=== PATIENT | male | born 1965 | race Caucasian/White ===

== ENCOUNTER → 2020-03-05 11:35 | Outpatient (BNVA) | payer BC, SELFPAY | PROVIDERS: Family Provider Electrodiagnostic Medicine; PCP Electrodiagnostic Medicine; Visit Provider Nurse Practitioner | DX: J02.9 Acute pharyngitis, unspecified (principal) | CPT/HCPCS: 87071; 87880 ==

== ENCOUNTER 2020-06-04 11:08 | Observation (INO) | payer BC, SELFPAY ==
[2020-06-04] VITALS (12 sets, daily range): BP systolic 106–156; BP diastolic 65–93; PULSE 55–90; RESP 12–22; TEMP 36.7; O2SAT 90–98; BMI 33.0
--- NOTE | 2020-06-04 11:27 | ECG_ITS ---
[facility] Test Date: 2020-06-04 Pat Name: Brandin Thomas Department: Room: Gender: Male Circulation Representative: CLARE : 1965 Requested By: Jovanny North Order Number: [id number] Reading MD: MARTA PIERCE Measurements Intervals [place] Rate: 115 P: IN: QRS: 16 QRSD: 102 T: 43 QT: 366 QTc: 507 Interpretive Statements ATRIAL FIBRILLATION WITH RAPID VENTRICULAR RESPONSE MODERATE ST DEPRESSION [0.05+ mV ST DEPRESSION] No previous ECG available for comparison Electronically Signed On 06-04-2020 21:34:21 HEALTH SAFETY INSTRUCTOR by MARTA PIERCE [email or web address] [email or web address] hospitalThe Good Mortgage Companyohio state east hospital.[employer]/store/OV/[id number]
--- NOTE | 2020-06-04 11:27 | XRR_ITS ---
PROCEDURE INFORMATION: Exam: XR Chest, 1 View Exam date and time: 06/04/2020 12:11 PM Age: 55 years old Clinical indication: Chest pain; Additional info: Arrythmia TECHNIQUE: Imaging protocol: XR of the chest Views: 1 view. COMPARISON: No relevant prior studies available. FINDINGS: Lungs: Unremarkable. No consolidation. Pleural spaces: Unremarkable. No pleural effusion. No pneumothorax. Heart/Mediastinum: Unremarkable. No cardiomegaly. Bones/joints: Unremarkable. XR/XR chest 1V portable [id number] IMPRESSION: No acute findings.
--- NOTE | 2020-06-04 11:35 | W.ED.ARRPALP ---
HPI - Arrhythmia/Palpitations General: Chief Complaint: Arrhythmia/Palpitations Stated Complaint: Heart sounded off/Urgent care referral Time Seen by Provider: 06/04/20 11:27 History of Present Illness: HPI narrative: 55-year-old male comes in complaining of palpitations and rapid heart rate. Started 2 days ago. He does have a history of hypertension he takes amlodipine and metoprolol. His rate at the bedside was as high as the 140s and 150s just when he sat up. He is not really had any chest pain. He is not on any anticoagulants. He states he has not been told he is in atrial fibrillation in the past he has no history of coronary artery disease that he is aware of. MD complaint: rapid heart beat, heart racing , palpitations and irregular heart beat Onset (ago): day(s) (2) Duration: constant Severity: mild Context: occurred during rest Associated symptoms: Deny anxiety, cough, diaphoresis, muscle cramps, nausea, paresthesias, pre-syncope, sense of impending doom, short of breath, syncope or vomiting Review of Systems Const: Denies: diaphoresis ENMT: Denies: throat pain, ear or mastoid pain, nasal discharge or nasal congestion Card: Denies: syncope or pre-syncope Resp: Denies: dyspnea, productive cough or non-productive cough GI: Denies: nausea or vomiting : Denies: flank pain, dysuria, urinary frequency or urinary urgency Musc: Denies: muscle cramps Skin/Breast: Denies: rash or pruritus Psych: Denies: anxiety PFSH ED PFSH: Social History Smoking and tobacco status: never smoked Physical Exam Const: COMMON NORMALS: no acute distress GENERAL APPEARANCE: cooperative and comfortable ORIENTATION/CONSCIOUSNESS: Yes awake, Yes oriented to person, Yes oriented to place and Yes oriented to time HENMT: COMMON NORMALS: normocephalic, atraumatic and hearing grossly normal bilaterally HEAD & SCALP: normocephalic and atraumatic Neck/C-Spine: COMMON NORMALS: no JVD Resp: COMMON NORMALS: normal respiratory effort, No retractions, No use of accessory muscles and clear to auscultation bilaterally AUSCULTATION: clear to auscultation bilaterally Cardio: COMMON NORMALS: no JVD and No murmurs present (Cardio) RATE: tachycardic RHYTHM: abnormal rhythm irregularly irregular GI: COMMON NORMALS: Soft to palpation and No hepatosplenomegaly present AUSCULTATION: Yes normoactive bowel sounds PALPATION: Yes Soft to palpation, No Tenderness to palpation present (GI), No Guarding due to palpation present (GI) and Yes No hepatosplenomegaly present Extremity: COMMON NORMALS: normal to inspection, capillary refill normal, no clubbing, cyanosis or edema, no calf tenderness and no pedal edema Neuro: SENSORIUM/ORIENTATION: Yes oriented to person, Yes oriented to place and Yes oriented to time Skin: COMMON NORMALS: no rashes or lesions noted GENERAL SKIN EXAM: no rashes or lesions noted Course Vital Signs: Vital signs: Vital Signs Temperature 98.0 F 06/04/20 11:19 Pulse Rate 77 06/04/20 13:19 Respiratory Rate 16 06/04/20 13:19 Blood Pressure 128/65 06/04/20 13:19 Pulse Oximetry 98 06/04/20 13:19 MDM - Arrhythmia/Palpitations MDM Narrative: Medical decision making narrative: Gustavo in A. fib. When he stays in bed resting his heart rate stays 80s and 90s but even just repositioning helps and better he will shoot up to 120s when he ambulates on the monitor goes to 140s and 150s. He is already on metoprolol. Would place him on observation for further evaluation rate control discussed with hospitalist orders are written. Lab Data: Labs: Lab Results 06/04/20 06/04/20 06/04/20 Range/Units 11:35 11:35 11:35 WBC 8.1 (4.0-10.0) 10^3/ uL RBC 5.43 H (4.1-5.3) 10^6/u L Hgb 16.4 (11.7-16.6) g/dL Hct 48.6 (42.0-52.0) % MCV 89.5 (80-94) fL MCH 30.2 (28.0-34.0) pg MCHC 33.7 (30.0-36.0) g/dL RDW 12.1 (12.1-15.1) % Plt Count 266 (130-400) 10^3/c mm MPV 10.4 (7.4-10.4) fL Neut % (Auto) 55.0 % Lymph % (Auto) 30.9 % [place] % (Auto) 8.9 % Eos % (Auto) 4.1 % Baso % (Auto) 0.9 % Neut # (Auto) 4.46 (1.8-7.7) 10^3/u L Lymph # (Auto) 2.5 (0.8-4.8) 10^3/u L [place] # (Auto) 0.7 (0.2-0.9) 10^3/u L Eos # (Auto) 0.3 (0.0-0.8) 10^3/u L Baso # (Auto) 0.1 (0.0-0.1) 10^3/u L Nucleated RBC % (a uto) 0 % Nucleated RBCs # 0.0 /100WBC Sodium 134 L (136-145) mmol/L Potassium 3.5 (3.5-5.1) mmol/L Chloride 95 L (98-107) mmol/L Carbon Dioxide 24 (22-29) mmol/L Anion Gap 18.5 (5-19) BUN 18 (6-20) mg/dL Creatinine 0.9 (0.7-1.2) mg/dL GFR Calculation 87.3 L (90-130) mL/min Glucose 126 H (65-115) mg/dL Calculated Osmolal ity 281 L (285-295) mOsm/k g Calcium 9.6 (8.5-10.5) mg/dL Total Bilirubin 0.9 (0.15-1.2) mg/dL AST 101 H (0-40) U/L ALT 128 H (0-41) U/L Alkaline Phosphata se 70 (40-130) IU/L Troponin T Baselin e 14 (0-15) ng/L Total Protein 7.9 (6.6-8.7) g/dL Albumin 4.6 (3.5-5.2) g/dL Globulin 3.3 (1.3-4.6) g/dL TSH 1.45 (0.27-4.20) uIU/ mL Discharge Plan Discharge Patient Disposition: Placed in Observation Clinical Impression: Atrial fibrillation, Benign essential HTN Coding Level of Care Code ED Solids Control Technician for Chg Fwd Exam Comprehensive
[2020-06-04 11:47] LABS: Basophils # 0.1 10^3/uL (0.0-0.1); Basophils % 0.9 %; Eosinophils # 0.3 10^3/uL (0.0-0.8); Eosinophils % 4.1 %; Hematocrit 48.6 % (42.0-52.0); Hemoglobin 16.4 g/dL (11.7-16.6); Lymphocytes # 2.5 10^3/uL (0.8-4.8); Lymphocytes % 30.9 %; Mean Corpuscular HGB Conc 33.7 g/dL (30.0-36.0); Mean Corpuscular Hemoglobin 30.2 pg (28.0-34.0); Mean Corpuscular Volume 89.5 fL (80-94); Mean Platelet Volume 10.4 fL (7.4-10.4); Monocytes # 0.7 10^3/uL (0.2-0.9); Monocytes % 8.9 %; Neutrophils # 4.46 10^3/uL (1.8-7.7); Nucleated Red Blood Cells % 0 %; Platelet Count 266 10^3/cmm (130-400); Red Blood Count 5.43 10^6/uL (4.1-5.3); Red Cell Distribution Width 12.1 % (12.1-15.1); White Blood Count 8.1 10^3/uL (4.0-10.0)
[2020-06-04 12:14] LABS: Troponin(5th) Baseline 14 ng/L (0-15)
[2020-06-04 12:24] LABS: Alanine Aminotransferase 128 U/L (0-41); Albumin Level 4.6 g/dL (3.5-5.2); Alkaline Phosphatase 70 IU/L (40-130); Anion Gap 18.5 (5-19); Aspartate Amino Transferase 101 U/L (0-40); Blood Urea Nitrogen 18 mg/dL (6-20); Calcium 9.6 mg/dL (8.5-10.5); Carbon Dioxide 24 mmol/L (22-29); Chloride 95 mmol/L (98-107); Globulin 3.3 g/dL (1.3-4.6); Glomerular Filtration Rate 87.3 mL/min (90-130); Glucose 126 mg/dL (65-115); Osmolality Calculated 281 mOsm/kg (285-295); Potassium 3.5 mmol/L (3.5-5.1); Sodium 134 mmol/L (136-145); Thyroid Stimulating Hormone 1.45 uIU/mL (0.27-4.20); Total Bilirubin 0.9 mg/dL (0.15-1.2); Total Protein 7.9 g/dL (6.6-8.7)
--- NOTE | 2020-06-04 13:27 | ECG_ITS ---
[facility] Test Date: 2020-06-04 Pat Name: Brandin Thomas Department: Room: Gender: Male Medicaid Nurse: : 1965 Requested By: Jovanny North Order Number: [id number] Reading MD: MARTA PIERCE Measurements Intervals [place] Rate: 91 P: MA: QRS: 23 QRSD: 96 T: 38 QT: 380 QTc: 469 Interpretive Statements ATRIAL FIBRILLATION ABNORMAL RHYTHM ECG Compared to ECG 06/04/2020 11:17:19 ST (T wave) deviation no longer present Electronically Signed On 06-04-2020 21:34:34 BALANCE STAFF STAKER by MARTA PIERCE [email or web address]/[id number]
--- NOTE | 2020-06-04 13:57 | PC.NURSE ---
Ambulated with portable monitor, HR elevated from 120's-150's, denies symptoms at time of ambulation.
[2020-06-04] MEDS: metoprolol tartrate 25 mg Tablet PO (14:41)
[2020-06-04] MEDS: metoprolol tartrate 1 mg/1 mL SDV 5 mL 2.5 MG IV (14:41)
[2020-06-04 14:57] LABS: Free T4 Free Thyroxine 1.39 ng/dL (0.82-1.77)
--- NOTE | 2020-06-04 16:03 | PM.HP ---
Providers/Chief Complaint Admitting Physician: Blake Colvin Primary Care Provider: Zaire Childs DO Chief Complaint: Heart sounded off/Urgent care referral History of Present Illness Very pleasant 55-year-old gentleman with longstanding history of hypertension, since at least age 28 at which point he required starting 2 medications, with BPH, recently having gone through COVID-19 infection with minimal if any symptoms, not requiring supplemental oxygen, came in due to nursing significant palpitations while walking starting on . He was referred after assessment in outpatient clinic and in ER noted to have heart rates up into 130s initially when sitting up, atrial fibrillation, then with walking 140s-150s. Atrial fibrillation noted on EKG. He denies history of atrial fibrillation in the past. Otherwise he states that his heart rate staying in the 50s-60s. He denies having any chest pain or pressure. He has not been short of breath. He reports that his Fitbit has been warning him of intermittently fast heart rates recently. He does state that on he felt he had too much sodium having gone to the local [place] place twice, and so since then has had no sodium in his diet. He otherwise states has been at baseline state of health. Denies any fevers or chills, shortness of breath, does state has had chronic cough for close to about a year. No phlegm production. His saturation in ER is in the mid to high 90s on room air. Chest x-ray is unremarkable. His baseline troponin is normal at 14, with 2 hours troponin of 12.7. Glucose is 126, without history of diabetes. Sodium is 134. Potassium 3.5. Creatinine 0.9. Incidentally noted AST and ALT elevation, 101, 128 respectively. Normal T bili, alkaline phosphatase. TSH Normal at 1.45. Free T4 1.39. Review of Systems Const: Denies: fever(s), chills, body aches or malaise Eyes: Denies: change in vision or eye redness ENMT: Denies: throat pain, oral sores or ear or mastoid pain Card: Reports: irregular heart rhythm; Denies: chest pain, edema, pre-syncope or dyspnea on exertion Resp: Denies: dyspnea, productive cough, change in phlegm color or hemoptysis GI: Denies: abdominal pain, nausea, vomiting, diarrhea, constipation, hematochezia or melena : Denies: flank pain, difficulty urinating, urinary frequency or hematuria Musc: Denies: back pain, joint swelling or joint redness Skin/Breast: Denies: rash, sores or new lesions Neuro: Denies: headache(s), numbness in extremities, weakness in extremities, dizziness, confusion or seizure-like activity Endo: Denies: polyuria or polydipsia Juan/Lymph: Denies: easy bleeding or purpura All/Imm: Denies: urticaria, throat swelling or tongue swelling Medications/Allergies Home Medications Medication Instructions Recorded Confirmed Last Taken Type amlodipine 10 mg tablet 10 mg PO DAILY@0600 03/05/20 06/04/20 06/04/20 History hydrochlorothiazide 25 mg tablet 25 mg PO DAILY@0600 03/05/20 06/04/20 06/04/20 History metoprolol tartrate 50 mg tablet 50 mg PO BID@0600,1800 03/05/20 06/04/20 06/04/20 History aspirin [Aspir-81] 81 mg PO DAILY@0600 06/04/20 06/04/20 06/03/20 History fluticasone propionate [Flonase] 50 mcg INTRANASAL BID PRN 06/04/20 06/04/20 Unknown History tamsulosin 0.4 mg capsule 0.4 mg PO DAILY@0600 06/04/20 06/04/20 06/04/20 History Allergies Allergy/AdvReac Type Severity Reaction Status Date / Time Penicillins Allergy Unknown Verified 06/04/20 10:39 PFSH Acute PFSH: Medical History BPH (benign prostatic hyperplasia) HTN (hypertension) Surgical History No significant past surgical history Family History Father CAD (coronary artery disease) Mother Pacemaker Social History Smoking and tobacco status: never smoked Alcohol intake: never Substance/Drug Use: never Lives independently: Yes Marital status: Current occupational status: employed [employer] Last Vital Signs Temp 98.0 F 06/04/20 14:44 Pulse 90 06/04/20 15:41 Resp 20 H 06/04/20 15:41 BP 106/80 06/04/20 15:41 Pulse Ox 96 06/04/20 15:41 Weight last 48 hrs Weight 113.398 kg Physical Exam Const: COMMON NORMALS: no acute distress and patient oriented x3 NUTRITIONAL APPEARANCE: overweight OTHER: at bedside. HENMT: COMMON NORMALS: oropharynx normal Neck/C-Spine: COMMON NORMALS: no JVD Resp: COMMON NORMALS: normal respiratory effort and clear to auscultation bilaterally AUSCULTATION: clear to auscultation bilaterally Cardio: COMMON NORMALS: no JVD, regular rhythm, S1 normal heart sound present, S2 normal heart sound present and No murmurs present (Cardio) RHYTHM: regular rhythm HEART SOUNDS: S1 normal heart sound present and S2 normal heart sound present GI: COMMON NORMALS: Normal to inspection, nondistended, normoactive bowel sounds present, Soft to palpation and non-tender PALPATION: Yes Soft to palpation Extremity: COMMON NORMALS: no joint enlargement and no pedal edema Neuro: COMMON NORMALS: patient oriented x3 and moves all extremities Skin: COMMON NORMALS: no rashes or lesions noted GENERAL SKIN EXAM: no rashes or lesions noted Data : 06/04/20 11:35 06/04/20 11:35 A&P Assessment and plan (1) New onset a-fib: Exclude ischemia as discussed with him, complete troponin EKG series. Assess echocardiogram. TSH is normal. Replace potassium, 20 mEq. Check magnesium. New A. fib may be secondary to electrolyte shifts recently. However, he had also recently had Covid. Describes some exertional intolerance, with no reports tachycardia with sitting up, walking more than atrial fibrillation. Currently resting in sinus bradycardia 60s. Received 2.5 mg IV metoprolol, 25 mg p.o. For now we will hold off on repeating case contributing to resting bradycardia. Repeat EKG with noted first degree block, HR 50s-60s. Will hold off on initial plan of resuming his usual metoprolol dose due to bradycardia, first-degree block. Blocking agents may not be the best choice for treatment of his tachyarrhythmia given resting bradycardia and heart block. We are requesting cardiology consultation for advice given resting bradycardia and heart block. Discussed with him consideration of stress testing given history of HTN, family history of CAD. Discussed possibility of COVID-19 related autonomic dysfunction. Discussed possibility of diabetes related autonomic dysfunction. Glucose is 126. Will check A1c. Monitor on telemetry. Status: Acute (2) HTN (hypertension): Monitor blood pressures, currently rather soft. Hold off on HCTZ, amlodipine. Discussed with him possibly orthostatic hypotension with amlodipine, tamsulosin, HCTZ. Will assess orthostatic blood pressures. Status: Acute (3) Transaminitis: Unclear etiology of transaminitis, AST 101, ALT 128. Denies any abdominal pain. Has no tenderness on palpation. Perhaps related to recent Covid infection. Otherwise possibility of fatty liver disease. Status: Acute (4) Hyperglycemia: A1c Status: Acute Additional A&P Information BPH: On tamsulosin Attestations Medical Necessity Statement*: Place in observation. Coding Level of Care Code Acute Manager Media Relations for Amada Rao Diagnoses New onset a-fib I48.91 HTN (hypertension) I10 Transaminitis R74.01 Hyperglycemia R73.9
[2020-06-04] MEDS: potassium chloride ER 20 mEq Tablet PO (16:35)
--- NOTE | 2020-06-04 16:41 | PC.NURSE ---
ADMISSION PATIENT ADMITTED TO ROOM 104. NO NEW QUESTIONS UPON ADMISSION. PATIENT WEARING GLASSES. PRESENT. EDUCATED OVER AFIB AND POTENTIAL COMPLICATIONS FROM A-FIB. PATIENT VERY PLEASANT, HE DOES APPEAR ANXIOUS AND STATED HE WAS MILDLY ANXIOUS. PATIENT STATED THAT HE HAD NEVER HAD TO STAY IN A HOSPITAL AND WASN'T SURE WHAT TO EXPECT. ENTERPRISE RESOURCE PLANNER EXPLAINED ALL OF THE ORDERS FOR THE PATIENT AND WHAT TO POTENTIALLY EXPECT THIS STAY. NO COMPLAINTS AT THIS TIME. WILL CONTINUE TO MONITOR.
[2020-06-04 16:43] LABS: Magnesium 2.2 mg/dL (1.7-2.3); Thyroid Stimulating Hormone 1.45 uIU/mL (0.27-4.20)
[2020-06-04 17:05] LABS: Estmated Average Glucose 117; Hemoglobin A1C 5.7 % (4.0-6.0)
--- NOTE | 2020-06-04 17:27 | ECG_ITS ---
[facility] Test Date: 2020-06-04 Pat Name: Brandin Thomas Department: Room: 104 Gender: Male Jewel Bearing Turner: : 1965 Requested By: Jovanny North Order Number: [id number] Reading MD: MARTA PIERCE Measurements Intervals [place] Rate: 58 P: 38 IN: 261 QRS: 39 QRSD: 114 T: 48 QT: 457 QTc: 452 Interpretive Statements SINUS BRADYCARDIA WITH FIRST DEGREE AV BLOCK INFERIOR MYOCARDIAL INFARCTION [40+ ms Q WAVE AND/OR ST/T ABNORMALITY IN II/aVF], PROBABLY OLD Compared to ECG 06/04/2020 16:13:12 Sinus rhythm no longer present Myocardial infarct finding still present Electronically Signed On 06-04-2020 21:34:25 SPIRAL TUBE WINDER HELPER by MARTA PIERCE [email or web address] medical [email or web address] clinic avon hospital.[employer]/store/[id number]
--- NOTE | 2020-06-04 21:14 | PC.NURSE ---
PT IS RESTING IN BED. PT DENIES PAIN AT THIS TIME. WILL CONTINUE TO MONITOR.
--- NOTE | 2020-06-04 21:28 | P.CONIM_ITS ---
Providers/Reason For Consult Consulting Physican/Specialty*: Cardiology Reason for Consult*: Paroxysmal A. fib with possible tachybradycardia syndrome Attending Physician: Blake Colvin Primary Care Provider: Zaire Childs DO History of Present Illness History of Present Illness Brandin Thomas is a 55 year old male past medical history significant for recent Covid infection longstanding hypertension obesity and possible obstructive sleep apnea was admitted with atrial fibrillation with rapid ventricle color response patient was given IV metoprolol after that he became bradycardic. He is in sinus rhythm however whenever he tried to walk his heart rate goes up into 120s. T welve-lead EKG was consistent with atrial fibrillation. Most likely patient has paroxysmal A. fib. He has risk factors for atrial fibrillation including longstanding hypertension obesity and obstructive sleep apnea. He may have underlying tachybradycardia syndrome. We will try to adjust his medicine and see how he does. Echocardiogram will be obtained in the morning to rule out cardiomyopathy. Review of Systems Const: Denies: fever(s), chills, body aches, malaise or diaphoresis Eyes: Denies: change in vision or eye redness ENMT: Denies: throat pain, oral sores, ear or mastoid pain, nasal discharge or nasal congestion Card: Reports: irregular heart rhythm; Denies: chest pain, edema, syncope, pre-syncope or dyspnea on exertion Resp: Denies: dyspnea, productive cough, non-productive cough, change in phlegm color or hemoptysis GI: Denies: abdominal pain, nausea, vomiting, diarrhea, constipation, hematochezia or melena : Denies: flank pain, difficulty urinating, dysuria, urinary frequency, urinary urgency or hematuria Musc: Denies: back pain, joint swelling, joint redness or muscle cramps Skin/Breast: Denies: rash, pruritus, sores or new lesions Neuro: Denies: headache(s), numbness in extremities, weakness in extremities, dizziness, confusion or seizure-like activity Psych: Denies: anxiety Endo: Denies: polyuria or polydipsia Juan/Lymph: Denies: easy bleeding or purpura All/Imm: Denies: urticaria, throat swelling or tongue swelling Meds/Allergies Home Medications and Allergies Home Medications Medication Instructions Recorded Confirmed Last Taken Type fluticasone propionate [Flonase] 50 mcg INTRANASAL BID PRN 06/04/20 06/04/20 Unknown History tamsulosin 0.4 mg capsule 0.4 mg PO DAILY@0600 06/04/20 06/04/20 06/04/20 History amlodipine 2.5 mg PO DAILY #30 tab 06/05/20 Unknown Rx aspirin 325 mg PO DAILY #30 tab 06/05/20 Unknown Rx clindamycin HCl 300 mg PO TID 7 Days #21 cap 06/05/20 Unknown Rx metoprolol tartrate 12.5 mg PO BID #30 tab 06/05/20 Unknown Rx potassium chloride [Klor-Con 10] 10 meq PO DAILY #7 tab 06/05/20 Unknown Rx Allergies Allergy/AdvReac Type Severity Reaction Status Date / Time Penicillins Allergy Unknown Verified 06/04/20 10:39 PFSH Acute PFSH: Medical History BPH (benign prostatic hyperplasia) HTN (hypertension) Surgical History No significant past surgical history Family History Father CAD (coronary artery disease) Mother Pacemaker Social History Smoking and tobacco status: never smoked Alcohol intake: never Substance/Drug Use: never Lives independently: Yes Marital status: Current occupational status: employed Vitals/I&O/Wt Last Vital Signs Temp 98.0 F 06/04/20 19:29 Pulse 68 06/04/20 19:29 Resp 16 06/04/20 19:29 BP 138/77 06/04/20 19:29 Pulse Ox 94 06/04/20 19:29 06/04/20 06/04/20 06/04/20 06:59 14:59 22:59 Intake Total 240 / 240 Balance 240 / 240 Weight last 48 hrs Weight 250 lb Physical Exam Narrative: EXAM NARRATIVE: GENERAL: Patient is alert, awake and oriented x3. NECK: No jugular vein distension. HEENT: No cyanosis. No icterus. No pallor. HEART: Regular S1 and S2. No murmur, rub or gallop. LUNGS: Clear to auscultate bilaterally. ABDOMEN: Soft, nontender and nondistended. Positive bowel sounds. No guarding, rebound or tenderness. CENTRAL NERVOUS SYSTEM: Grossly nonfocal. EXTREMITIES: Lower extremities without edema bilaterally. A&P Assessment and plan (1) New onset a-fib: Patient has paroxysmal A. fib currently is in sinus rhythm. We will try to control it with low-dose beta-vladislav since patient has tachybradycardia syndrome. I will stop amlodipine and hydrochlorothiazide as it may drop the blood pressure and increase his heart rate. Advised to rule out obstructive sleep apnea as outpatient with sleep study.CHADVASc score >1. Therefore we recommend full dose aspirin 325 mg p.o. daily. Status: Acute (2) HTN (hypertension): Well-controlled. Continue current regimen Status: Acute Consult Attestations Medical Necessity Statement: Patient require continuation hospitalization for above defined care Coding Level of Care Code New Pt Acute Electric Power Line Examiner for Chg Fwd Patient Type New History Detailed Exam Detailed Medical Decision Making Moderate Complexity Diagnoses New onset a-fib I48.91 HTN (hypertension) I10
--- NOTE | 2020-06-04 21:52 | PC.NURSE ---
Dr Farr present on the floor. Reports he will discontinue HCTZ and amlodipine from home medications and reduce his metoprolol to 25mg from his home dose of 50mg.
[2020-06-05 03:39] VITALS: BP 123/75; PULSE 56; RESP 17; TEMP 36.6; O2SAT 92
--- NOTE | 2020-06-05 04:28 | PC.NURSE ---
PT IS RESTING IN BED. PT DENIES PAIN. WILL CONTINUE TO MONITOR.
[2020-06-05 04:30] LABS: Basophils # 0.1 10^3/uL (0.0-0.1); Basophils % 0.9 %; Eosinophils # 0.5 10^3/uL (0.0-0.8); Eosinophils % 5.9 %; Hematocrit 43.7 % (42.0-52.0); Lymphocytes # 3.2 10^3/uL (0.8-4.8); Lymphocytes % 37.2 %; Mean Corpuscular HGB Conc 34.3 g/dL (30.0-36.0); Mean Corpuscular Hemoglobin 30.8 pg (28.0-34.0); Mean Corpuscular Volume 89.7 fL (80-94); Mean Platelet Volume 10.6 fL (7.4-10.4); Monocytes # 0.8 10^3/uL (0.2-0.9); Monocytes % 9.3 %; Neutrophils # 3.99 10^3/uL (1.8-7.7); Neutrophils % 46.4 %; Nucleated Red Blood Cells % 0 %; Platelet Count 244 10^3/cmm (130-400); Red Blood Count 4.87 10^6/uL (4.1-5.3); White Blood Count 8.6 10^3/uL (4.0-10.0)
[2020-06-05 04:52] LABS: Alanine Aminotransferase 99 U/L (0-41); Albumin Level 3.9 g/dL (3.5-5.2); Alkaline Phosphatase 61 IU/L (40-130); Anion Gap 15.4 (5-19); Aspartate Amino Transferase 66 U/L (0-40); Blood Urea Nitrogen 17 mg/dL (6-20); Calcium 8.8 mg/dL (8.5-10.5); Carbon Dioxide 26 mmol/L (22-29); Chloride 96 mmol/L (98-107); Globulin 3.3 g/dL (1.3-4.6); Glucose 93 mg/dL (65-115); Osmolality Calculated 279 mOsm/kg (285-295); Potassium 3.4 mmol/L (3.5-5.1); Sodium 134 mmol/L (136-145); Total Bilirubin 0.8 mg/dL (0.15-1.2); Total Protein 7.2 g/dL (6.6-8.7)
[2020-06-05] MEDS: tamsulosin 0.4 mg Capsule PO (05:04)
[2020-06-05] MEDS: aspirin 81 mg EC Tablet PO (05:04)
[2020-06-05 06:00] VITALS: PULSE 51
--- NOTE | 2020-06-05 07:00 | USCV_ITS ---
Brandin Thomas Age: 55 Gender: M : 1965 Exam Date: 06/05/2020 08:58 Ordering Phys: Blake Colvin MD Technologist: Tricia Bolden [place] [facility] [place]: New afib BP: 123 / 75 HR: 61 Rhythm: Sinus Technical Quality: Fair MEASUREMENTS (Male / Female) Normal Values 2D ECHO LV Diastolic Diameter PLAX 4.2 cm 4.2 - 5.9 / 3.9 - 5.3 cm LV Systolic Diameter PLAX 2.9 cm LV Chamber Size 4.6 cm IVS Diastolic Thickness 2.0 cm 0.6 - 1.0 / 0.6 - 0.9 cm IVS Systolic Thickness 2.4 cm LVPW Diastolic Thickness 0.9 cm 0.6 - 1.0 / 0.6 - 0.9 cm LVPW Systolic Thickness 1.4 cm RV Chamber Size 3.2 cm LVOT Diameter 2.2 cm LV Ejection Fraction 2D Teich 58.8 % LV Ejection Fraction MOD 2C 57.2 % LV Ejection Fraction 2C AL 60.9 % LA Diameter 3.8 cm LA Width 2.4 cm LA Height 5.5 cm RA Width 2.9 cm RA Height 5.4 cm Aorta at Sinotubular Diameter 2.6 cm M-MODE LV Diastolic Diameter MM 5.3 cm 4.2 - 5.9 / 3.9 - 5.3 cm LV Systolic Diameter MM 3.2 cm LV Ejection Fraction MM Teich 68.8 % IVS Diastolic Thickness MM 1.6 cm 0.6 - 1.0 / 0.6 - 0.9 cm IVS Systolic Thickness MM 2.1 cm LVPW Diastolic Thickness MM 1.1 cm 0.6 - 1.0 / 0.6 - 0.9 cm LVPW Systolic Thickness MM 1.4 cm RV Diastolic Diameter MM 2.6 cm Aortic Annulus Diameter 4.0 cm LA Ao Ratio MM 1.3 MV E Point Septal Separation 0.4 cm DOPPLER AV Peak Velocity 168.0 cm/s LVOT Peak Velocity 149.0 cm/s AV Area Cont Eq vti 3.7 cm squared AV Area Cont Eq pk 3.3 cm squared MV Area PHT 3.3 cm squared Mitral E to A Ratio 1.0 MV E' Velocity 46.0 cm/s Mitral E to MV E' Ratio 7.5 Mitral E to LV E' Lateral Ratio 6.2 Mitral E to LV E' Septal Ratio 9.6 TV Peak E Velocity 55.0 cm/s Right Atrial Pressure 3.0 mmHg PV Peak Velocity 113.0 cm/s RV Acceleration Time 0.1 s RV Ejection Time 0.3 s RV AcT/ET 0.5 FINDINGS Left Ventricle Normal left ventricular cavity size. Normal left ventricular systolic function. No regional wall motion abnormalities. Left ventricular ejection fraction is estimated at 65 %. Grade II/IV diastolic dysfunction, moderately elevated filling pressures. Right Ventricle The right ventricle is normal in size and function. Right Atrium The right atrium is normal in size. Left Atrium The left atrium is normal in size. Mitral Valve Structurally normal mitral valve without significant stenosis or prolapse. There is no mitral regurgitation. Aortic Valve Structurally normal aortic valve without significant sclerosis or stenosis. There is no aortic regurgitation. Tricuspid Valve Structurally normal tricuspid valve without significant stenosis or regurgitation. Pulmonary artery systolic pressure is normal. Pulmonic Valve Structurally normal pulmonic valve without significant stenosis. There is no pulmonic regurgitation. Pericardium Normal pericardium without effusion. Aorta Normal ascending aorta dimension. CONCLUSIONS 1-Normal left ventricular cavity size. Normal left ventricular systolic function. No regional wall motion abnormalities. Left ventricular ejection fraction is estimated at 65 %. Grade II/IV diastolic dysfunction, moderately elevated filling pressures. 2. No significant chamber abnormalities. 3. No sigificant valve abnormalities. 4. There is no pericardial effusion. 5. There are no intracardiac masses. 6. Pulmonary artery systolic pressure is within normal limits. 7. Right atrial pressure is around [5] mm of mercury. 8. There are no prior echocardiogram studies to compare. Prakash Farr MD (Electronically Signed) Final Date: 05 June 2020 10:44 S
[2020-06-05 07:11] VITALS: BP 139/72; PULSE 56; RESP 15; TEMP 36.5; O2SAT 94
--- NOTE | 2020-06-05 09:15 | PC.NURSE ---
PATIENT AMBULATED APPROXIMATELY 100 FEET. PER MONITOR PATIENT REMAINED IN SINUS RHYTHM DURING WALK AND HEART RATE WENT UP TO 101 BPM. RESTING, PATIENT HR IS IN THE LOW 50'S. DR. PIERCE NOTIFIED. ORDERED TO HOLD CARDIZEM AND CHANGE METOPROLOL TO 12.5MG BID.
[2020-06-05] MEDS: potassium chloride ER 20 mEq Tablet 40 MEQ PO (09:27)
[2020-06-05] MEDS: metoprolol tartrate 25 mg Tablet 12.5 MG PO (09:27)
[2020-06-05 10:58] VITALS: BP 133/77; PULSE 58; RESP 17; TEMP 36.4; O2SAT 93
[2020-06-05 14:00] VITALS: PULSE 54
[2020-06-05 14:23] VITALS: BP 133/77; PULSE 54; RESP 17; TEMP 36.4; O2SAT 93
--- NOTE | 2020-06-05 14:25 | PM.PN ---
Subjective Subjective: Interval history: No more episodes of A. fib. Patient remains bradycardic with heart rate of 50 bpm to 60 bpm. Medications: Reviewed: Yes Vitals/I&O/Wt Last Vital Signs Temp 97.6 F 06/05/20 14:23 Pulse 54 L 06/05/20 14:23 Resp 17 06/05/20 14:23 BP 133/77 06/05/20 14:23 Pulse Ox 93 06/05/20 14:23 06/04/20 06/05/20 06/05/20 22:59 06:59 14:59 Intake Total 240 / 240 600 / 840 600 / 600 Balance 240 / 240 600 / 840 600 / 600 Weight last 48 hrs Weight 250 lb Physical Exam Narrative: EXAM NARRATIVE: GENERAL: Patient is alert, awake and oriented x3. NECK: No jugular vein distension. HEENT: No cyanosis. No icterus. No pallor. HEART: Regular S1 and S2. No murmur, rub or gallop. LUNGS: Clear to auscultate bilaterally. ABDOMEN: Soft, nontender and nondistended. Positive bowel sounds. No guarding, rebound or tenderness. CENTRAL NERVOUS SYSTEM: Grossly nonfocal. EXTREMITIES: Lower extremities without edema bilaterally. Data : 06/05/20 03:53 06/05/20 03:53 A&P Assessment and plan (1) New onset a-fib: Patient has paroxysmal A. fib currently is in sinus rhythm. We will try to control it with low-dose beta-vladislav since patient has tachybradycardia syndrome. I will stop amlodipine and hydrochlorothiazide as it may drop the blood pressure and increase his heart rate. Advised to rule out obstructive sleep apnea as outpatient with sleep study.CHADVASc score >1. Therefore we recommend full dose aspirin 325 mg p.o. daily. On today's visit dated 06/05/2020 no overnight event. I reduced metoprolol to 12.5 mg twice a day. Amlodipine 2.5 mg once a day. Event monitor has been suggested. Full dose aspirin prescribed. Patient is walking around without any episodes of atrial fibrillation. Advised obstructive sleep apnea rule out as an outpatient. We will see him in our clinic in 1 month Status: Acute (2) HTN (hypertension): Well-controlled. Continue current regimen. Advised patient in case of systolic blood pressure remains more than 150 all the time he should increase amlodipine to 10 mg and let us know. Advised to keep log of blood pressure pulse and send it to us after 7 days. Status: Acute Attestations Medical Necessity Statement*: On a cardiovascular perspective patient can be discharged home Coding Level of Care Code Acute Merchandise Adjustment Clerk for Amada Rao Diagnoses New onset a-fib I48.91 HTN (hypertension) I10
--- NOTE | 2020-06-06 02:33 | P.DS_ITS ---
Discharge Providers Date of Admission: 06/04/20 14:15 Date of Discharge: June 05, 2020 Attending Provider at Admission: Blake Colvin Attending Provider at Discharge: Blake Colvin Primary Care Provider: Zaire Childs DO Diagnoses at Discharge Discharge Diagnosis (1) New onset a-fib: Status: Acute (2) HTN (hypertension): (3) Transaminitis: Status: Acute (4) Orthostatic hypotension: Status: Acute (5) Periodontitis: Status: Acute (6) Bradycardia: Status: Acute Reason for Visit Reason for Visit: Heart sounded off/Urgent care referral Hospital Course Hospital Course 55 year old pleasant gentleman with history of HTN, obesity, family history of CAD, recent covid infection with minimal symptoms presented due to experiencing palpitations with exertion since . On assessment he was found to have paroxysmal AFib with orthostatic trigger, also with a degree of orthostasis with SBP decreasing from 141 to 124 from laying to standing. He had no chest pain. Troponin was normal. There was no evidence of TN. He had no hypoxia or evidence of active respiratory illness. Echocardiogram showed gr 2 diastolic dysfunction. TSH was normal. He was noted to have minimal hyponatremia and hypokalemia. Incidentally AST and ALT were elevated with unclear significance at 101 and 128. tBili and AP Remained normal. While at rest he was noted in sinus bradycardia and 1st degree block. He was monitored on telemetry. Cardiology was consulted. His medications are adusted as per recommendations with metoprolol dose decreased to 12.5 mg BID due to tachy-sally syndrome. Amlodipine is decreased to 2.5mg. HCTZ is discontinued due to orthostasis, fluctuation in electrolytes. He also severely lmited sodium intake in days preceding the episodes. It was recommended he increase aspirin dose to 325mg due to stroke risk with AFib and CHADS VASC score of 1. Please refer him for a sleep study to exclude sleep apnea as the cause of his symptoms. These recommendations were all discussed with the patient and he is agreeable to seek these changes. He also told us today he has been having pain and redness around his R lower molar. With infection possibly contributing he was preferring to get treatment with antibiotic until he can see his dentist which he says is going to happen this week. He has done well with the changes in the hospital and requested to be discharged home the same day. He intends to monitor he BP and heart rate and follow up with PCP and cardiology in clinic. Per cardiology recommendation he will be set up with a log manager. We discussed the possibility of autonomic dysfunction post-COVID infection. DM was considered with hyperglycemia 124 on presentation. A1c is 5.7. He states understands to maintain orthostatic precautions. Please discuss options for weight loss. Please follow up liver parameters and consider referral for liver US. Please follow up sodium and potassium. At some point as discussed with him it may be beneficial to assess him for presence of penicillin sensitivity with reported history of childhood allergy. Physical Exam Const: COMMON NORMALS: no acute distress and patient oriented x3 NUTRITIONA L APPEARANCE: overweight OTHER: at bedside. HENMT: COMMON NORMALS: oropharynx normal Neck/C-Spine: COMMON NORMALS: no JVD Resp: COMMON NORMALS: normal respiratory effort and clear to auscultation bilaterally AUSCULTATION: clear to auscultation bilaterally Cardio: COMMON NORMALS: no JVD, regular rhythm, S1 normal heart sound present, S2 normal heart sound present and No murmurs present (Cardio) RHYTHM: regular rhythm HEART SOUNDS: S1 normal heart sound present and S2 normal heart sound present GI: COMMON NORMALS: Normal to inspection, nondistended, normoactive bowel sounds present, Soft to palpation and non-tender PALPATION: Yes Soft to palpation Extremity: COMMON NORMALS: no joint enlargement and no pedal edema Neuro: COMMON NORMALS: patient oriented x3 and moves all extremities Skin: COMMON NORMALS: no rashes or lesions noted GENERAL SKIN EXAM: no rashes or lesions noted Discharge Data Data Completed and Pending: Completed Studies During Hospitalization Category Date Time Status XR chest 1V cassandra ble [id number] Stat Exams 06/04/20 11:27 Completed CV echo complete* [id number] Routine Ultrasound 06/05/20 07:00 Completed Labs from last 24 hours 06/05/20 06/05/20 03:53 03:53 WBC 8.6 RBC 4.87 Hgb 15.0 Hct 43.7 MCV 89.7 MCH 30.8 MCHC 34.3 RDW 12.0 L Plt Count 244 MPV 10.6 H Neut % (Auto) 46.4 Lymph % (Auto) 37.2 [place] % (Auto) 9.3 Eos % (Auto) 5.9 Baso % (Auto) 0.9 Neut # (Auto) 3.99 Lymph # (Auto) 3.2 [place] # (Auto) 0.8 Eos # (Auto) 0.5 Baso # (Auto) 0.1 Nucleated RBC % (a uto) 0 Nucleated RBCs # 0.0 Sodium 134 L Potassium 3.4 L Chloride 96 L Carbon Dioxide 26 Anion Gap 15.4 BUN 17 Creatinine 0.8 GFR Calculation 100.0 Glucose 93 Calculated Osmolal ity 279 L Calcium 8.8 Total Bilirubin 0.8 AST 66 H ALT 99 H Alkaline Phosphata se 61 Total Protein 7.2 Albumin 3.9 Globulin 3.3 Vitals: Last Vital Signs Temp 97.6 F 06/05/20 14:23 Pulse 54 L 06/05/20 14:23 Resp 17 06/05/20 14:23 BP 133/77 06/05/20 14:23 Pulse Ox 93 06/05/20 14:23 Discharge Plan Discharge Patient Disposition: Home Condition: Stable Prescriptions: New amlodipine 2.5 mg tablet 2.5 mg PO DAILY Qty: 30 RF: 0 metoprolol tartrate 25 mg tablet 12.5 mg PO BID Qty: 30 RF: 0 Klor-Con 10 10 mEq tablet extended release 10 meq PO DAILY Qty: 7 RF: 0 aspirin 325 mg tablet 325 mg PO DAILY Qty: 30 RF: 0 clindamycin HCl 300 mg capsule 300 mg PO TID 7 Days Qty: 21 RF: 0 Continued tamsulosin 0.4 mg capsule 0.4 mg PO DAILY@0600 RF: 0 fluticasone propionate 50 mcg/actuation Ider,Suspension 50 mcg INTRANASAL BID PRN (Reason: unknown) RF: 0 Discontinued metoprolol tartrate 50 mg tablet 50 mg PO BID@0600,1800 RF: 0 amlodipine 10 mg tablet 10 mg PO DAILY@0600 RF: 0 hydrochlorothiazide 25 mg tablet 25 mg PO DAILY@0600 RF: 0 aspirin [Aspir-81] 81 mg Tablet,Delayed Release (Dr/Ec) 81 mg PO DAILY@0600 RF: 0 Discharge Orders: Discharge Order (Routine); Ordered 06/05/20 Ordered By: Blake Colvin Other Ambulatory Orders: [place] cardiac event monitor (Routine) Timeframe: 1 Day Facility: [facility] - Location: Cardiac Diagnostic Laboratory Ordered By: Blake Colvin Referrals: Prakash Farr MD [Physician] - 1 month ([facility] will contact you to schedule an follow-up appointment in 1 month. If you haven't heard from them by Saturday afternoon. Please call [phone] Also, [facility] will contact you to schedule a Cardiac Event Monitor placement. If you haven't heard from them by Saturday afternoon. Please call ) Kalpana Bashir FNP [Nurse Practitioner] - 1 week ([facility] will contact you to schedule an follow-up appointment in 1 week. If you haven't heard from them by Saturday afternoon. Please call ) Zaire Childs DO [Primary Care Provider] - 4-7 days ([facility] will contact you to schedule an follow-up appointment in 4 to 7 days. If youhaven't heard from the by Saturday afternoon. Please call ) Discharge Diet: Cardiac Discharge Activity: Increase activity as tolerated Patient Instructions: Clindamycin (By mouth), Metoprolol (By mouth), Amlodipine (By mouth), Atrial Fibrillation (GEN), Dental Abscess (GEN), Hyponatremia (GEN), Hypokalemia (GEN) Activity Restrictions/Additional Instructions: Please see your dentist as soon as possible. Please continue to follow your heart rates, blood pressures at home, measure at least 3 times daily, record values to bring to your appointment. If your heart rates become significantly/persistently low, below 50 bpm, or if you are experiencing any lightheadedness, or feeling like you are about to faint, please hold next dose of metoprolol and amlodipine and seek medical attention without delay. Please discuss with your primary care doctor paroxysmal atrial fibrillation. Discussed again regarding evaluation of risk of stroke and consideration of anticoagulation. Please rise slowly from laying to sitting and sitting to standing. If you get lightheaded her heart rate is racing quite a bit, please sit down or lie down. Please discuss with your primary care doctor regarding racing heart rates with standing and walking. Discussed also decrease in blood pressure from laying to standing (decrease in systolic blood pressure from 141-124). Avoid dehydration. Avoid severely limiting salt intake. In some instances autonomic dysfunction has been seen as a long-term complication of COVID-19 infection. Please discuss with your doctor. Please have your primary care doctor also reassess your sodium level, and potassium level due to noted mildly decreased level of both. Please have your primary care doctor also follow-up on your liver function tests. In the hospital noted mild-moderate increase in liver parameters AST and ALT. Please also discuss with your doctor follow-up with liver ultrasound. Please discuss with your doctor weight loss strategies. Please discuss with your primary care doctor referral for sleep study to assess for sleep apnea. Discharge Attestations Time Spent in Discharge Care*: greater than 30 min Quality Metrics Clinical Quality Measures During this hospital stay, did patient experience: None Coding Level of Care Code Acute Natural Resources Instructor for Chg Fwd Diagnoses New onset a-fib I48.91 HTN (hypertension) I10 Transaminitis R74.01 Orthostatic hypotension I95.1 Periodontitis K05.30 Bradycardia R00.1
== END 2020-06-05 14:50 | disposition home or self-care (01) ==
LOC: ER 14:14 → CSU 15:26
PROVIDERS: Admitting Provider Internal Medicine; Emergency Provider Family Medicine; PCP Electrodiagnostic Medicine; Visit Provider Internal Medicine
DX: I48.0 Paroxysmal atrial fibrillation (principal); I10 Essential (primary) hypertension; R74.01 Elevation of levels of liver transaminase levels; I95.1 Orthostatic hypotension; K05.30 Chronic periodontitis, unspecified; R00.1 Bradycardia, unspecified; R73.9 Hyperglycemia, unspecified; Z86.16 Personal history of COVID-19; Z79.82 Long term (current) use of aspirin; N40.0 Benign prostatic hyperplasia without lower urinary tract symptoms
CPT/HCPCS: 12345; 36415; 71045; 80053; 83036; 83735; 84439; 84443; 84484; 85025; 93005; 93306; 96374; 99283; 99285; G0378; J3490

== ENCOUNTER 2020-10-13 14:49 | Emergency (ER) | payer BC, SELFPAY ==
[2020-10-13 14:52] VITALS: BP 169/88; PULSE 88; RESP 16; TEMP 36.7; O2SAT 97; BMI 30.9
--- NOTE | 2020-10-13 15:04 | ECG_ITS ---
[facility] Test Date: 2020-10-13 Pat Name: Brandin Thomas Department: Room: Gender: Male [employer] [place] [employer]: : 1965 Requested By: Zack Evans Order Number: [id number] Jamir MD: Stanislav Gould M.D. Measurements Intervals [place] Rate: 63 P: 47 [place]: 206 QRS: 41 QRSD: 107 T: 29 QT: 423 QTc: 434 Interpretive Statements SINUS RHYTHM PROBABLE INFERIOR MYOCARDIAL INFARCTION [35 ms Q WAVE IN II/aVF], PROBABLY OLD Compared to ECG 06/04/2020 18:08:14 Sinus bradycardia no longer present First degree AV block no longer present Myocardial infarct finding still present Electronically Signed On 10-13-2020 18:21:44 CDT by Stanislav Gould M.D. [email or web address]
--- NOTE | 2020-10-13 15:10 | XR_ITS ---
WS: [id number] Exam: XR chest 1V portable [id number] Date/Time of Exam: 10/13/2020 3:39 PM Reason For Exam: heart flutter Comparison 06/04/2020. Findings: The lungs are clear and fully expanded. Costophrenic angles are sharp. No infiltrates. Bronchovascula r relief appears normal. Cardiac silhouette is unremarkable. Bony elements are intact. XR/XR chest 1V portable [id number] IMPRESSION: Unremarkable chest radiograph.
--- NOTE | 2020-10-13 15:11 | W.ED.ARRPALP ---
HPI - Arrhythmia/Palpitations General: Chief Complaint: Arrhythmia/Palpitations Stated Complaint: HE DOESNT KNOW BUT THINKS ITS HIS HEART Time Seen by Provider: 10/13/20 15:04 History of Present Illness: HPI narrative: Patient complains about a fluttering in his chest. Patient states started yesterday. Patient states also that he was treating himself for diverticulitis and got some antibiotics but not take those but did quit eating for 2 3 days. Then he stopped at [employer] yesterday and got a chicken breast sandwich and a Diet Coke which he never drinks and then a fluttering started. States also he is traveling down to [place] tomorrow taking a flight and is very anxious about the flight possible. Denies any chest pressure pain nausea or vomiting or diaphoresis MD complaint: palpitations Onset (ago): day(s) Duration: intermittent Severity: mild Context: other Arrhythmia history: atrial fibrillation Associated symptoms: Reports anxiety; Deny nausea or vomiting Review of Systems Const: Denies: fever(s), chills or body aches Eyes: Denies: change in vision or blurry vision ENMT: Denies: throat pain or nasal congestion Card: Reports: palpitations; Denies: chest pain or dyspnea on exertion Resp: Denies: dyspnea, productive cough or non-productive cough GI: Denies: abdominal pain, nausea or vomiting : Denies: difficulty urinating Musc: Denies: extremity pain Skin/Breast: Denies: rash Neuro: Denies: headache(s) Psych: Reports: anxiety Juan/Lymph: Denies: easy bruising PFSH ED PFSH: Medical History (System 08/11/20 @ 14:52 by Missy Rodrigez) BPH (benign prostatic hyperplasia) HTN (hypertension) Surgical History (System 08/11/20 @ 14:52 by Missy Rodrigez) No significant past surgical history Family History Father CAD (coronary artery disease) Mother Pacemaker Social History (System 08/11/20 @ 14:52 by Missy Rodrigez) Smoking and tobacco status: never smoked Alcohol intake: never Lives independently: Yes Marital status: Current occupational status: employed Physical Exam Const: COMMON NORMALS: no acute distress, average body habitus and patient oriented x3 HENMT: COMMON NORMALS: normocephalic HEAD & SCALP: normal to inspection and normocephalic FACE & SINUS: normal facial exam Eye: COMMON NORMALS: conjunctivae normal GENERAL EYE: appearance normal, both eyes and all related structures CONJUNCTIVA: Yes conjunctivae normal Neck/C-Spine: COMMON NORMALS: no JVD Chest: COMMONS NORMALS: normal inspection of the chest Resp: COMMON NORMALS: normal respiratory effort and clear to auscultation bilaterally AUSCULTATION: clear to auscultation bilaterally Cardio: COMMON NORMALS: no JVD, regular rate and regular rhythm RATE: regular rate RHYTHM: regular rhythm GI: COMMON NORMALS: Normal to inspection, nondistended, normoactive bowel sounds present Extremity: COMMON NORMALS: normal to inspection and full ROM Neuro: COMMON NORMALS: patient oriented x3 Course Vital Signs: Vital signs: Vital Signs Temperature 98.1 F 10/13/20 14:52 Pulse Rate 66 10/13/20 15:33 Respiratory Rate 18 10/13/20 15:33 Blood Pressure 167/87 10/13/20 15:33 Pulse Oximetry 95 10/13/20 15:33 MDM - Arrhythmia/Palpitations MDM Narrative: Medical decision making narrative: Patient's labs come back normal. Patient symptoms consistent with anxiety. Based on his past history based on what is going to happen with his trip this coming up tomorrow think it is consistent with anxiety. This x-ray and EKG look good. Lab Data: Labs: Lab Results 10/13/20 10/13/20 Range/Units 15:32 15:32 WBC 6.4 (4.0-10.0) 10^3/ uL RBC 4.81 (4.1-5.3) 10^6/u L Hgb 14.7 (11.7-16.6) g/dL Hct 44.5 (42.0-52.0) % MCV 92.5 (80-94) fL MCH 30.6 (28.0-34.0) pg MCHC 33.0 (30.0-36.0) g/dL RDW 11.8 L (12.1-15.1) % Plt Count 255 (130-400) 10^3/c mm MPV 10.2 (7.4-10.4) fL Neut % (Auto) 63.6 % Lymph % (Auto) 24.9 % [place] % (Auto) 7.2 % Eos % (Auto) 3.1 % Baso % (Auto) 0.9 % Neut # (Auto) 4.03 (1.8-7.7) 10^3/u L Lymph # (Auto) 1.6 (0.8-4.8) 10^3/u L [place] # (Auto) 0.5 (0.2-0.9) 10^3/u L Eos # (Auto) 0.2 (0.0-0.8) 10^3/u L Baso # (Auto) 0.1 (0.0-0.1) 10^3/u L Nucleated RBC % (a uto) 0 % Nucleated RBCs # 0.0 /100WBC Troponin T Gen 5 n g/L 15 (0-15) ng/L EKG Data^: EKG 1: EKG interpretation date: 10/13/20 Computer generated interpretation: Normal sinus rhythm Other EKG comments: Chest X-Ray 10/13/20 15:10 IMPRESSION: Unremarkable chest radiograph. Discharge Plan Discharge Prescriptions: No Action tamsulosin 0.4 mg capsule 0.4 mg PO DAILY@0600 RF: 0 metoprolol tartrate 25 mg tablet 12.5 mg PO BID Qty: 30 RF: 3 amlodipine 2.5 mg tablet 2.5 mg PO DAILY Qty: 30 RF: 3 fluticasone propionate 50 mcg/actuation [place],Suspension 50 mcg INTRANASAL BID PRN (Reason: unknown) RF: 0 aspirin 325 mg tablet 325 mg PO DAILY Qty: 30 RF: 0 Coding Level of Care Code ED Or First Assist Registered Nurse for Chg Fwd Exam Comprehensive
[2020-10-13] MEDS: LORazepam 0.5 mg Tablet PO (15:25)
[2020-10-13 15:33] VITALS: BP 167/87; PULSE 66; RESP 18; O2SAT 95
[2020-10-13 15:44] LABS: Basophils # 0.1 10^3/uL (0.0-0.1); Basophils % 0.9 %; Eosinophils # 0.2 10^3/uL (0.0-0.8); Eosinophils % 3.1 %; Hematocrit 44.5 % (42.0-52.0); Hemoglobin 14.7 g/dL (11.7-16.6); Lymphocytes # 1.6 10^3/uL (0.8-4.8); Lymphocytes % 24.9 %; Mean Corpuscular Hemoglobin 30.6 pg (28.0-34.0); Mean Corpuscular Volume 92.5 fL (80-94); Mean Platelet Volume 10.2 fL (7.4-10.4); Monocytes # 0.5 10^3/uL (0.2-0.9); Monocytes % 7.2 %; Neutrophils # 4.03 10^3/uL (1.8-7.7); Neutrophils % 63.6 %; Nucleated Red Blood Cells % 0 %; Platelet Count 255 10^3/cmm (130-400); Red Blood Count 4.81 10^6/uL (4.1-5.3); Red Cell Distribution Width 11.8 % (12.1-15.1); White Blood Count 6.4 10^3/uL (4.0-10.0)
[2020-10-13 16:04] LABS: Troponin T (5th) Once 15 ng/L (0-15)
[2020-10-13 16:26] LABS: Alanine Aminotransferase 57 U/L (0-41); Albumin Level 4.2 g/dL (3.5-5.2); Alkaline Phosphatase 60 IU/L (40-130); Anion Gap 15.9 (5-19); Aspartate Amino Transferase 68 U/L (0-40); Blood Urea Nitrogen 11 mg/dL (6-20); Calcium 8.5 mg/dL (8.5-10.5); Carbon Dioxide 23 mmol/L (22-29); Chloride 103 mmol/L (98-107); Globulin 2.4 g/dL (1.3-4.6); Glucose 178 mg/dL (65-115); Osmolality Calculated 290 mOsm/kg (285-295); Potassium 3.9 mmol/L (3.5-5.1); Sodium 138 mmol/L (136-145); Total Bilirubin 0.5 mg/dL (0.15-1.2); Total Protein 6.6 g/dL (6.6-8.7)
[2020-10-13 16:39] VITALS: BP 150/93; PULSE 54; RESP 18; O2SAT 96
== END 2020-10-13 16:40 | disposition home or self-care (01) ==
PROVIDERS: Emergency Provider Nurse Practitioner Family; PCP Electrodiagnostic Medicine
DX: R00.2 Palpitations (principal); I10 Essential (primary) hypertension; Z79.82 Long term (current) use of aspirin
CPT/HCPCS: 71045; 80053; 84484; 85025; 93005; 99283